=== PATIENT | male | born 1935 | race Caucasian/White ===

== ENCOUNTER 2020-01-13 13:29 | Outpatient (CLI) | payer MEDICARE, BC, SELFPAY ==
[2020-01-13 13:50] LABS: Hematocrit 43.4 % (42.0-52.0); Hemoglobin 14.2 g/dL (14.0-18.0); Mean Corpuscular HGB Conc 32.7 g/dl (32-36); Mean Corpuscular Hemoglobin 28.9 pg (26-34); Mean Corpuscular Volume 88.4 fl (80-100); Mean Platelet Volume 9.7 fl (7.4-10.4); Platelet Count Result 218 k/mm3 (150-375); Red Blood Count 4.91 M/mm3 (4.6-6.20); Red Cell Distribution Width 13.4 % (11.5-14.5); White Blood Count 5.3 K/mm3 (4.5-10.0)
[2020-01-13 15:06] LABS: Anion Gap 9 mmol/L (8-16); Blood Urea Nitrogen 19 mg/dL (9-20); Calcium 9.5 mg/dL (8.4-10.2); Carbon Dioxide 28 mmol/L (22-30); Chloride 103 mmol/L (98-107); Estimated Glomerular Filt Rate > 60; Glucose 128 mg/dL (75-110); Potassium 4.5 mmol/L (3.4-5.0); Sodium 140 mmol/L (137-145)
[2020-01-13 15:13] LABS: Immunoglobulin A 152 mg/dL (70-400); Immunoglobulin G 936 mg/dL (700-1600); Immunoglobulin M 255 mg/dL (40-230)
[2020-01-18 21:31] LABS: Albumin 4.2 g/dL (3.8-4.8); Alpha 1 Globulin 0.3 g/dL (0.2-0.3); Alpha 2 Globulin 0.9 g/dL (0.5-0.9); Beta 1 Globulin 0.4 g/dL (0.4-0.6)
[2020-01-21 22:02] LABS: Kappa\\Lambda Light Chains 1.17 (0.26-1.65); Lambda Light Chain 22.8 mg/L (5.7-26.3)
== END 2020-01-13 13:30 | disposition home or self-care (01) ==
PROVIDERS: PCP Nurse Practitioner; Visit Provider Internal Medicine Hematology & Oncology
DX: D47.2 Monoclonal gammopathy (principal)
CPT/HCPCS: 36415; 80048; 82784; 83883; 84155; 84165; 85027; 86334

== ENCOUNTER 2020-04-04 22:33 | Observation (INO) | payer MEDICARE, BC, SELFPAY ==
--- NOTE | ~2020-04-04 | MR_ITS ---
EXAMINATION: MR brain/brain stem wo/w con EXAM DATE: 04/05/2020 11:55 INDICATION: Transient expressive aphasia. TECHNIQUE: Magnetic resonance imaging (MRI) of the brain/brain stem obtained without contrast. Sagit vicente T1, axial diffusion, gradient echo (T2*), T1, T2, FLAIR sequences obtained. Patient was then inj ected with 19 cc intravenous Multihance contrast. Axial and coronal postcontrast T1 weighted sequence s obtained. There is no prior study for comparison. FINDINGS: There is punctate focus of increased diffusion weighted signal in the left parietal lobe at the vertex, possible punctate acute infarction. Multiple old small periventricular infarctions. Old right basal ganglia lacunar infarctions. There is no acute hemorrhage seen on the T2*, a hemosiderin sensitive sequence. No intraparenchymal brain mass lesion. There is moderate periventricular and sub cortical T2/FLAIR signal hyperintensity, nonspecific but probably related to small vessel ischemic di sease (microangiopathy). There is moderate prominence of the sulci and ventricles related to cerebr al atrophy. There are no extra-axial collections. Flow voids are seen in the cerebral arteries on the T2-weighted sequences consistent with their expected patency. The orbits are unremarkable. Soft tissue is unremarkable. IMPRESSION: 1. Punctate focus of signal abnormality left vertex, possible acute infarction 2. Multiple old small infarctions. 3. Chronic age related findings. Reviewed, dictated and finalized at location A. R SUPPLY ENGINEER
--- NOTE | ~2020-04-04 | US_ITS ---
EXAMINATION: US carotid duplex BI EXAM DATE: 04/05/2020 12:25 INDICATION: transient aphasia . TECHNIQUE: Grayscale, color and pulsed Doppler images of the cervical carotid arteries were obtained . The degree of vessel stenosis is placed in one of the following categories: normal, <50% stenosis, 50-69% stenosis, >=70% stenosis but less than near-occlusion, near-occlusion, or occlusion. Note that percent stenosis relative to normal distal artery lumen diameter is indirectly measured from velocit y measurements as described by Miguel, et al. Radiology 2003; 229:340-346. There is no prior study fo r comparison. FINDINGS: RIGHT SIDE: Right common carotid artery peak systolic velocity (PSV in cm/s): 85 Right bulb/internal carotid artery peak systolic velocity (PSV in cm/s): 74 Right internal carotid artery end diastolic velocity (EDV in cm/s): 18 Right ICA/CCA peak systolic ratio: 0.9 Right external carotid artery peak systolic velocity (PSV in cm/s): 79 Right vertebral artery antegrade flow: yes There is mild carotid bulb plaque. Velocity and Doppler waveforms in the common and internal carotid arteries is normal. LEFT SIDE: Left common carotid artery peak systolic velocity (PSV in cm/s): 84 Left bulb/internal carotid artery peak systolic velocity (PSV in cm/s): 106 Left internal carotid artery end diastolic velocity (EDV in cm/s): 33 Left ICA/CCA peak systolic ratio: 1.3 Left external carotid artery peak systolic velocity (PSV in cm/s): 85 Left vertebral artery antegrade flow: yes There is mild carotid bulb plaque. Velocity and Doppler waveforms in the common and internal carotid arteries is normal. IMPRESSION: 1. Less than 50 percent stenosis in the right internal carotid artery. 2. Less than 50 percent stenosis in the left internal carotid artery. > Reviewed, dictated and finalized at location A. AN TRADER
[2020-04-04 20:50] VITALS: BP 152/85; PULSE 76; RESP 20; TEMP 36.6; O2SAT 100; BMI 27.5
--- NOTE | 2020-04-04 21:07 | ADMGEN ---
This patient, Spencer Burciaga, was admitted to 2 Medical Room 259-01. Patient/family oriented to hospital policies and general routines including ID bracelet, bed and alarms, visiting hours, pain management, procedures, bathroom and other care routines, personal items, smoking policy, room service/diet, and visiting hours. Information on how to activate the Rapid Response Team has been discussed. Patient/Family are encouraged to report perceived risks to care and to ask questions if they do not understand what they are told or what they should do.
[2020-04-04 22:07] LABS: Glucose Point of Care 148 (65-105)
--- NOTE | 2020-04-04 23:00 | PM.IMHP ---
H&P: HPI History of Present Illness Date/Time: 04/04/20 23:00 Chief complaint: Transient expressive aphasia. Narrative: Spencer Burciaga is an 84-year-old male with history of multiple TIAs, stroke, type 2 diabetes mellitus, hypertension, and hypothyroidism who presented to the emergency department at [facility] in [place] earlier today for evaluation of transient expressive aphasia. Not long prior to arrival to the emergency department he and his were having a conversation when he suddenly was unable to speak which lasted for less than 30 minutes. After he returned to baseline his recollection for what had happened was poor. Tele neurologist at the outside hospital felt that he need to be admitted for neurology consultation, brain MRI, and EEG. There were no beds available at that hospital and he is thus being directly admitted to [facility]. At the time my evaluation he is at his baseline, and knows that he has mild dysarthria which he states is residual from a prior stroke. He has a loop recorder in place and is on apixaban however he has no documented history of atrial fibrillation. At the time of my evaluation he is resting comfortably and has no complaints. He denies headache, auditory and visual changes, dysphagia, focal weakness, and paresthesias. He also denies palpitations and racing heart. He has no history of seizures and there was no reported seizure activity. Review of Systems Review of Systems: Narrative: Twelve systems were reviewed with pertinent positives and negatives as per HPI. No fever, chills, or sweats. No recent cold or flu symptoms. He denies exertional chest pain shortness of breath. No syncope or near syncope. Weight has remained stable. No nausea, vomiting, diarrhea, or dysuria. Except as documented, all other systems were reviewed and are negative. [facility] Past Medical History Medical History (Updated 04/05/20 @ 01:31 by Vilma Leonardo PA-C) Cerebrovascular accident With mild residual dysarthria. Colon polyps Current use of alf anticoagulation Hyperlipidemia Hypertension Hypothyroidism Kidney donor Kidney stones Monoclonal gammopathy Osteoarthritis Skin cancer Type 2 diabetes mellitus Surgical History Surgical History (Updated 04/05/20 @ 01:28 by Vilma Leonardo PA-C) History of arthroscopy of shoulder History of cataract extraction History of cystoscopy With stone extraction and stent placement. History of left nephrectomy Patient donated left kidney. History of lithotripsy Status post placement of implantable loop recorder Family History Family History Mother Breast cancer Diabetes mellitus Mother History of open heart surgery Mother No problems noted. Father Lung cancer Sibling Diabetes mellitus Social History Social History (Updated 04/05/20 @ 01:29 by Vilma Leonardo PA-C) Social History: Surrogate decision maker: Suma Burciaga, . Code status: Full code. Smoking packs per day: 2 Smoking cigarettes per day: 40.0 Years smoked: 14 Smoking pack-years: 28.00 Smoking status: Former smoker Tobacco type: cigarettes, cigars and smokeless tobacco Second hand tobacco smoke exposure: Yes Smoking end date: 03/18/1960 Alcohol intake: unknown Substance use: never Additional living arrangements comments: Patient lives in [place] with his . He is originally from [place] and lived in [place] for many years. Additional occupation/education comments: Retired from the [employer] [place]. Spiritual care concerns: No Meds Home Medications and Allergies Home Medications Medication Instructions Recorded Confirmed Type apixaban [Eliquis] 5 mg PO BID 04/04/20 04/04/20 History aspirin [Chris Chewable Aspirin] 81 mg PO DAILY 04/04/20 04/04/20 History lisinopril [Zestril] 5 mg PO ONCE 04/04/20 04/04/20 History metformin [Glucophage
[2020-04-05] VITALS: PULSE 71
[2020-04-05 04:00] VITALS: BP 107/53; PULSE 72; PULSE 77; RESP 18; TEMP 36.8; O2SAT 95
[2020-04-05 05:43] LABS: Alanine Aminotransferase 26 U/L (4-50); Albumin Level 3.9 g/dL (3.5-5.1); Alkaline Phosphatase 42 U/L (38-126); Anion Gap 9 mmol/L (8-16); Aspartate Amino Transferase 32 U/L (17-59); Bilirubin,Total 0.5 mg/dL (0.2-1.3); Blood Urea Nitrogen 15 mg/dL (9-20); Calcium 8.7 mg/dL (8.4-10.2); Carbon Dioxide 25 mmol/L (22-30); Chloride 107 mmol/L (98-107); Estimated CRCL calculation 59 ml/min; Estimated Glomerular Filt Rate > 60; Glucose 126 mg/dL (75-110); Potassium 3.8 mmol/L (3.4-5.0); Sodium 141 mmol/L (137-145)
[2020-04-05 05:49] LABS: Hemoglobin A1C 6.6 % (<5.7)
[2020-04-05 06:04] LABS: Cholesterol 103 mg/dL (0-200); HDL Direct 29 mg/dL; Triglycerides 195 mg/dL (<150)
[2020-04-05 06:15] LABS: LDL Cholesterol Direct 43 mg/dL
[2020-04-05 07:30] LABS: Glucose Point of Care 140 (65-105)
[2020-04-05 08:00] VITALS: PULSE 86
--- NOTE | 2020-04-05 08:44 | WPDNEURCNPN ---
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 Type 2 diabetes mellitus 2. Hypertension 3. Hypothyroidism 4. History of multiple TIAs in the past reportedly him and his for were having a conversation when he suddenly became unable to speak the whole episode lasted for 30 minutes. After he returned to the baseline he had difficulties in recalling what has happened. He was also noted to have mild residual dysarthria from the previous stroke and at present he is on apixaban with loop recorder in place but no documentation of atrial fibrillation as yet. evaluation up until now includes only the routine lab studies which include the CBC, BM and hemoglobin A1c of 6.6 with triglycerides of 195 patient does have ongoing history of monoclonal gammopathy with IgM of 255 and free kappa and lambda ratio of 1.17 Review of Systems Review of Systems: All systems reviewed & are unremarkable except as noted in HPI and below PMFSH Past Medical History Medical History Cerebrovascular accident With mild residual dysarthria. Colon polyps Current use of jail anticoagulation Hyperlipidemia Hypertension Hypothyroidism Kidney donor Kidney stones Monoclonal gammopathy Osteoarthritis Skin cancer Type 2 diabetes mellitus Surgical History Surgical History History of arthroscopy of shoulder History of cataract extraction History of cystoscopy With stone extraction and stent placement. History of left nephrectomy Patient donated left kidney. History of lithotripsy Status post placement of implantable loop recorder Family History Family History Mother Breast cancer Diabetes mellitus Mother History of open heart surgery Mother No problems noted. Father Lung cancer Sibling Diabetes mellitus Social History Social History Social History: Surrogate decision maker: Suma Burciaga, . Code status: Full code. Smoking packs per day: 2 Smoking cigarettes per day: 40.0 Years smoked: 14 Smoking pack-years: 28.00 Smoking status: Former smoker Tobacco type: cigarettes, cigars and smokeless tobacco Second hand tobacco smoke exposure: Yes Smoking end date: 03/18/1960 Alcohol intake: unknown Substance use: never Additional living arrangements comments: Patient lives in [place] with his . He is originally from [place] and lived in [place] for many years. Additional occupation/education comments: Retired from the [employer] [place]. Spiritual care concerns: No Meds Home Medications and Allergies Home Medications Medication Instructions Recorded Confirmed Type apixaban [Eliquis] 5 mg PO BID 04/04/20 04/04/20 History aspirin [Chris Chewable Aspirin] 81 mg PO DAILY 04/04/20 04/04/20 History lisinopril [Zestril] 5 mg PO ONCE 04/04/20 04/04/20 History metformin [Glucophage
[2020-04-05] MEDS: ROSUVASTATIN 10 MG TABLET 40 MG PO (09:05)
[2020-04-05 09:06] VITALS: PULSE 86
[2020-04-05] MEDS: APIXABAN 5 MG TABLET PO (09:06)
[2020-04-05] MEDS: THYROID 60 MG TABLET PO (09:06)
[2020-04-05] MEDS: lisinopriL 5 MG TABLET PO (09:06)
[2020-04-05] MEDS: metFORMIN HCL 500 MG TABLET 1000 MG PO (09:06)
[2020-04-05] MEDS: ASPIRIN 81 MG CHEWABLE TABLET PO (09:06)
[2020-04-05] MEDS: METOPROLOL SUCCINATE EXT REL 25 MG TABCR PO (09:06)
[2020-04-05] MEDS: TIMOLOL MALEATE 0.5% OP SOLN 5 ML BOTTLE 1 DROP EACH EYE (09:07)
--- NOTE | 2020-04-05 09:29 | WPDNEUROLOGY ---
Neurology EEG Report General Information Date of Study: 04/05/20 TEST EEG DIAGNOSIS Transient dysarthria CONDITION OF RECORDING awake drowsy and sleep EEG NUMBER [id number] CLINICAL HISTORY Patient reported he has had 4 small strokes in the last couple of years and each 1 leaves him with a little more dysarthria EEG DESCRIPTION Basic resting occipital frequency consists of medium voltage 8 to 9 hertz per 2nd alpha admixed with low-voltage 15 to 18 hertz per 2nd beta. During drowsiness low-voltage beta activity is seen diffusely. Bilateral symmetrical sleep activity seen during sleep hyperventilation not done photic stimulation not done. non paroxysmal nonfocal nonlateralizing IMPRESSION Normal record
[2020-04-05 12:36] LABS: Glucose Point of Care 137 (65-105)
[2020-04-05 14:00] VITALS: BP 119/73; PULSE 77; RESP 18; TEMP 36.2; O2SAT 97
--- NOTE | 2020-04-05 14:01 | PM.DS ---
DS: Admitting Diagnosis Admitting Diagnosis Admitting Diagnosis: Transient dysarthria DS: Discharge Diagnosis Discharge Diagnosis (1) Transient neurological symptoms: Code(s): R29.818 - Other symptoms and signs involving the nervous system Status: Acute Assessment and Plan: TIA vs CVA. Brain MRI has questionable punctate focus on left vertex possibly an acute infarct. Carotid duplex unremarkable. Patient's dysarthria symptoms are improved but still slightly present. Discussed with Dr. Don (Neurology) who is okay with discharge with follow up with his established Neurologist at [place]. He recommended continuing anticoagulation, statin, and ASA. 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: Code(s): Z79.01 - manager intermediate (current) use of anticoagulants Status: Acute Assessment and Plan: On Eliquis; will continue this at discharge (3) Hypertension: Code(s): I10 - Essential (primary) hypertension Status: Acute Assessment and Plan: BP 107/53 this morning Continue home antihypertensives at discharge (4) Hyperlipidemia: Code(s): E78.5 - Hyperlipidemia, unspecified Status: Acute Assessment and Plan: Triglycerides 195, cholesterol 103, LDL 43, HDL 29 Continue statin (5) Type 2 diabetes mellitus: Code(s): E11.9 - Type 2 diabetes mellitus without complications Status: Acute Assessment and Plan: BGL 100s. A1c 6.6 Accuchecks ACHS, hypoglycemia protocol, correctional insulin, diabetic diet (6) Hypothyroidism: Code(s): E03.9 - Hypothyroidism, unspecified Status: Acute Assessment and Plan: Continue home regimen DS: Summary Hospital Course Reason for hospitalization: Dysarthria; TIA vs CVA Hospital Course: Patient is a 84 yo M with history of multiple TIAs, stroke, type 2 diabetes mellitus, hypertension, and hypothyroidism who presented to the emergency department at [facility] in [place] on 04/04 for evaluation of transient expressive aphasia. Not long prior to arrival to the emergency department he and his were having a conversation when he suddenly was unable to speak which lasted for less than 30 minutes. After he returned to baseline his recollection for what had happened was poor. Tele neurologist at the outside hospital felt that he need to be admitted for neurology consultation, brain MRI, and EEG. Patient was then transferred to [facility] for above work up. Patient admitted under this setting. Please see H&P for further details. Dr. Don was consulted and EEG was reported to be normal. Carotid Doppler was unremarkable. Brain MRI showed old small infarctions, chronic age related findings and a punctate focus of signal abnormality left vertex, possibly suggesting an acute infarct. His symptoms had improved significantly, but still had slight dysarthria on discharge. Per Neurology recommendations, he was to continue his adequate stroke prophylaxis with aspirin, statin, and Eliquis. Vital signs were stable and patient afebrile with unremarkable labs during his stay. He was to follow up with his established Neurologist and PCP after discharge. No driving was recommended. Patient and family were agreeable and comfortable with plan for discharge. Patient hemodynamically stable and in improved condition for discharge on 04/05. Status at Discharge Overall status at discharge: patient is progressing back to baseline Time Spent with Patient Time attestation: Total time spent providing and/or coordinating discharge services: Time spent: Greater than 30 minutes
== END 2020-04-05 15:31 | disposition home or self-care (01) ==
PROVIDERS: Physician Assistant; Admitting Provider Internal Medicine; PCP Nurse Practitioner; Visit Provider Family Medicine
DX: R47.1 Dysarthria and anarthria (principal); R29.818 Other symptoms and signs involving the nervous system; I69.322 Dysarthria following cerebral infarction; E11.9 Type 2 diabetes mellitus without complications; E78.5 Hyperlipidemia, unspecified; E03.9 Hypothyroidism, unspecified; I10 Essential (primary) hypertension; Z79.01 Long term (current) use of anticoagulants; Z85.828 Personal history of other malignant neoplasm of skin; Z90.5 Acquired absence of kidney; Z87.891 Personal history of nicotine dependence; Z79.84 Long term (current) use of oral hypoglycemic drugs; Z95.818 Presence of other cardiac implants and grafts
CPT/HCPCS: 36415; 70553; 80053; 80061; 83036; 93880; 95816; A9270; A9577; G0378; G0379

== ENCOUNTER 2020-04-16 11:34 | Outpatient (CLI) | payer MEDICARE, BC, SELFPAY ==
[2020-04-18 13:19] LABS: Homocysteine 10.8 umol/L (<11.4)
== END 2020-04-16 11:35 | disposition home or self-care (01) ==
PROVIDERS: PCP Nurse Practitioner; Visit Provider Internal Medicine Hematology & Oncology
DX: I63.9 Cerebral infarction, unspecified (principal)
CPT/HCPCS: 36415; 83090; 85307

== ENCOUNTER 2023-10-31 09:07 | Emergency (ER) | payer MEDICARE, BC, SELFPAY ==
--- NOTE | ~2023-10-31 | XR_ITS ---
XR chest 2V DATE: 10/31/2023 10:08 INDICATION: Weakness TECHNIQUE: AP and lateral views. The lateral view is very limited due to superimposed upper extremiti es. COMPARISON: 11/17/2011 2 view chest FINDINGS: Heart size is normal. There is aortic calcification and unfolding. Loop recorder overlies the left chest. No pulmonary infiltrate or consolidation, pleural effusion or pulmonary vascular congestion or pneumo thorax is detected. Surgical clips overlie the right upper quadrant, consistent with cholecystectomy. Suture anchors at left humerus overlying greater tuberosity. Degenerative spurring of the thoracic sp ine. Osteopenia. IMPRESSION: No active cardiopulmonary disease Aortic atherosclerosis Reviewed, dictated and finalized at location A.
--- NOTE | ~2023-10-31 | CT_ITS ---
EXAMINATION: CT abd pelvis lumbar w con DATE: 10/31/2023 11:42 INDICATION: Chronic back pain. Decreased appetite and fluid intake. TECHNIQUE: Computed tomography (CT) of the abdomen and pelvis and lumbar spine was performed with 100 CC Omnipaque 350 intravenous contrast. Automated exposure control and iterative reconstruction techn ique were employed. Exam dose: 765.28 mGy-cm total exam DLP. COMPARISON: 08/13/2016 CT abdomen pelvis FINDINGS: There is a prominent discoid band of infiltrate, atelectasis and/or scarring in the posteri or right lower lobe with multiple associated crowded bronchi with extensive mucous plugging. Mild atelectasis or fibrotic change at the base of the left lung. Prominent coronary artery calcifications. No pericardial effusion. No pleural effusion. Status post cholecystectomy. This likely a cast for minimal prominence of the bile ducts. Normal miguel villa of the pancreatic duct. No hepatic, splenic, pancreatic or adrenal space-occupying mass lesion. Apparent small calcified left renal remnant in the left renal fossa, unchanged since 08/13/2016. Multiple right renal cysts again noted. No right urinary tract calculus or hydroureteronephrosis. There is prostate enlargement, impressing the base of the urinary bladder. Posterolateral right 12 mm urinary bladder diverticulum. There is atherosclerotic calcification but normal caliber of the abdominal aorta. No intraperitoneal or retroperitoneal or pelvic mass lesion or adenopathy or ascites is noted. Normal appendix. There is a prominent amount of feces in the colon. No bowel obstruction or intraperi toneal free air is detected. Small fat-containing umbilical hernia and small fat-containing inguinal hernias. No suspicious osteolytic or osteoblastic lesions. Diffuse idiopathic skeletal hyperostosis of the thoracic spine. Multilevel degenerative disease of the lumbar spine, moderately severe at L4-5 and L5-S1. Degenerativ e change at the lumbar and lumbosacral apophyseal joints. No spondylolisthesis. IMPRESSION: Diffuse idiopathic skeletal hyperostosis of the thoracic spine Lumbar spondylosis, including moderately severe degenerative disease at L4-5 and L5-S1 Prominent discoid atelectasis and/or scarring and crowded bronchi with mucus plugging, right lower lo be Coronary artery atherosclerosis Cholecystectomy Multiple right renal cysts Very hypertrophic calcified left renal remnant Normal appendix Reviewed, dictated and finalized at [facility]. Reviewed, dictated and finalized at [facility]. IMPRESSION: Diffuse idiopathic skeletal hyperostosis of the thoracic spine Lumbar spondylosis, including moderately severe degenerative disease at L4-5 an d L5-S1 Prominent discoid atelectasis and/or scarring and crowded bronchi with mucus pl ugging, right lower lobe Coronary artery atherosclerosis Cholecystectomy Multiple right renal cysts Very hypertrophic calcified left renal remnant Normal appendix
[2023-10-31 09:12] VITALS: BP 127/96; PULSE 85; RESP 16; TEMP 36.3; O2SAT 94
--- NOTE | 2023-10-31 09:14 | ECG_ITS ---
Test Date: 2023-10-31 09:16:13 Measurements Intervals [place] Rate: 83 P: 43 UT: 136 QRS: -78 QRSD: 106 T: 52 QT: 383 QTc: 452 Interpretive Statements SINUS RHYTHM PATTERN CONSISTENT WITH PULMONARY DISEASE LEFT ANTERIOR FASCICULAR BLOCK [QRS AXIS <= -45, QR IN I, RS IN II] No previous ECG available for comparison Electronically Signed On 11-01-2023 12:54:16 CDT by Jerry Franklin M.D.
--- NOTE | 2023-10-31 09:49 | ED.GENADULT ---
HPI - General Adult General Chief complaint: Weakness Stated complaint: Weakness Time Seen by Provider: 10/31/23 09:23 History of Present Illness HPI narrative: 87-year-old male that is a and O x1 at baseline presents to the emergency department for evaluation for decreased p.o. intake. Patient is present with his daughters here today. Patient's POA is clearly his and stepson. They had made the plan to place the patient on hospice. Patient states he does not want to be on hospice. Daughters feel the patient needs fluids for rehydration. Patient has had decreased p.o. intake due to chronic back pain. Related Data Home Medications Medication Instructions Recorded Confirmed timolol maleate 0.5 % eye drops 1 drp ophthalmic (eye) DAILY 04/04/20 10/01/23 (Timoptic) fluticasone propionate 50 2 spray intranasal DAILY 09/01/23 10/01/23 mcg/actuation nasal spray,suspension (Allergy Relief (fluticasone)) latanoprost 0.005 % eye drops 1 drp EACH EYE QPM 09/01/23 10/01/23 semaglutide 0.25 mg or 0.5 mg (2 0.5 mg subcut WEEKLY 09/01/23 10/01/23 mg/3 mL) subcutaneous pen injector (Ozempic) Allergies Allergy/AdvReac Type Severity Reaction Status Date / Time morphine Allergy Unknown Verified 05/02/20 14:15 aspirin AdvReac Mild Headache Verified 05/02/20 14:15 dipyridamole AdvReac Mild Headache Verified 05/02/20 14:15 Review of Systems Review of Systems: All systems reviewed & are unremarkable except as noted in HPI and below [facility] Past Medical History Medical History (Updated 10/31/23 @ 16:47 by Reed Gordon MD) Atrial fibrillation Cerebrovascular accident With mild residual dysarthria. Colon polyps Current use of group home anticoagulation Hemiparesis Hyperlipidemia Hypertension Hypothyroidism Kidney donor Kidney stones Monoclonal gammopathy Osteoarthritis Skin cancer Type 2 diabetes mellitus Surgical History Surgical History History of arthroscopy of shoulder History of cataract extraction History of cystoscopy With stone extraction and stent placement. History of left nephrectomy Patient donated left kidney. History of lithotripsy Status post placement of implantable loop recorder Family History Family History Sibling Malignant neoplasm of prostate Mother Family history of diabetes mellitus in first degree relative Family history of malignant neoplasm of breast in first degree relative Mother Breast cancer Diabetes mellitus Mother History of open heart surgery Mother No problems noted. Father Lung cancer Sibling Diabetes mellitus Social History Social History Social History: Surrogate decision maker: Suma Burciaga, . Code status: Full code. Smoking packs per day: 2 Smoking cigarettes per day: 40.0 Years smoked: 14 Smoking pack-years: 28.00 Smoking status: Former smoker Tobacco type: cigarettes Second hand tobacco smoke exposure: No Smoking end date: 03/18/1960 Alcohol intake: former Substance use: never Substance use type: does not use Additional living arrangements comments: Patient lives in [place] with his . He is originally from [place] and lived in [place] for many years. Additional occupation/education comments: Retired from the [employer] [place]. Spiritual care concerns: No Exam Narrative: APPEARANCE: Alert-appearing. HEAD: normocephalic, atraumatic. EYES: PERRLA/EOMI, conjunctivae clear. NOSE: Normal no drainage EARS:TMS clear with good light reflex. THROAT: Pharynx clear, no exudate. NECK: Supple. No adenopathy, no masses. RESPIRATORY: Airway patent, respirations nonlabored. Clear to auscultation bilaterally, no rales, rhonchi, wheezing. CARDIOVASCULAR: Regular rate and rhythm without murmurs rubs or gallops. ABDOMIN
[2023-10-31 09:51] LABS: Basophils Percent Auto 0.5 % (0.2-1.2); Eosinophils Percent Auto 0.4 % (0-4.4); Hematocrit 47.4 % (42.0-52.0); Hemoglobin 15.4 g/dL (14.0-18.0); Immature Granulocyte Absolute 0.02 K/mm3 (0.00-0.031); Immature Granulocyte Percent A 0.4 % (0-0.5); Lymphocytes Absolute Auto 1.56 K/mm3 (0.9-3.2); Lymphocytes Percent Auto 27.8 % (18.3-44.2); Mean Corpuscular HGB Conc 32.5 g/dl (32-36); Mean Corpuscular Hemoglobin 30.6 pg (26-34); Mean Platelet Volume 9.8 fl (7.4-10.4); Monocytes Absolute Auto 0.5 K/mm3 (0.1-0.6); Monocytes Percent Auto 8.6 % (2.6-8.5); Neutrophils Absolute Auto 3.5 K/mm3 (1.3-6.7); Neutrophils Percent Auto 62.3 % (45.5-73.1); Platelet Count Result 274 k/mm3 (150-375); Red Blood Count 5.04 M/mm3 (4.6-6.20); Red Cell Distribution Width 17.3 % (11.5-14.5); White Blood Count 5.6 K/mm3 (4.5-10.0)
[2023-10-31 09:54] LABS: Appearance Urine Clear (Clear); Bacteria Urine None Seen /hpf; Bilirubin Urine Negative (Negative); Blood Urine 3+ (Negative); Color Urine Yellow (Yellow); Glucose Urine UA Negative (Negative); Ketones Urine 2+ mg/dL (Negative); Leukocyte Esterase Ur Negative LEU/UL (Negative); Nitrate Urine Negative (Negative); Non Pathogenic Casts 0-2; Protein Urine Trace mg/dL (Negative); RBC Urine >100 /hpf (0-2); Specific Grav Ur 1.019 (1.001-1.035); Squamous Epithelial Cell Urine None Seen /hpf (Few); WBC Urine 0-5 /hpf (0-3); pH Urine 6.5 (5.0-9.0)
[2023-10-31 10:00] LABS: Add Urine Microscopic? YES
[2023-10-31 10:01] LABS: Alanine Aminotransferase 51 U/L (6-50); Albumin Level 3.8 g/dL (3.5-5.1); Alkaline Phosphatase 125 U/L (38-126); Anion Gap 9 mmol/L (4-12); Aspartate Amino Transferase 53 U/L (17-59); Bilirubin,Total 1.2 mg/dL (0.2-1.3); Blood Urea Nitrogen 16 mg/dL (9-20); Calcium 9.1 mg/dL (8.4-10.2); Carbon Dioxide 24 mmol/L (22-30); Chloride 110 mmol/L (98-107); Estimated CRCL calculation 49 ml/min; Estimated Glomerular Filt Rate > 60; Glucose 139 mg/dL (65-110); Potassium 3.7 mmol/L (3.4-5.0); Sodium 143 mmol/L (137-145)
[2023-10-31] MEDS: SODIUM CHLORIDE 0.9% IV 1,000 ML 999 ML IV CONT (10:06)
[2023-10-31 10:16] VITALS: PULSE 79
[2023-10-31 10:27] LABS: Influenza A QL RT-PCR Negative (Negative); Influenza B QL RT-PCR Negative (Negative); RSV RNA, RT-PCR Negative (Negative); SARS-CoV-2 RNA PCR Negative (Negative)
[2023-10-31 11:01] VITALS: BP 137/97; PULSE 83; RESP 29; O2SAT 98
[2023-10-31] MEDS: methylPREDNISolone SOD SUCC 125 MG VIAL IV PUSH (11:09)
[2023-10-31] MEDS: fentaNYL CITRATE INJ (*CRX) 100 MCG/2 ML VIAL 50 MCG IV PUSH (11:09)
[2023-10-31 15:58] VITALS: BP 149/98; PULSE 83; RESP 23; O2SAT 94
--- NOTE | 2023-10-31 16:16 | PCCCNOTE ---
Referral received requesting a meeting with pt and family regarding goals of care. Per pt's advanced directive pt's , Suma, is HPOA and son, Hiram Huff is secondary HPOA. Call placed to pt's , and son, Hiram, was present during call. Hiram states pt's spouse has expressive phasia and at times cannot answer questions but is able to write answers to questions frequently. Hiram reports pt is from [facility] and has a Medicaid application pending. He states he met with LAKIA Leal from [facility], at the suggestions of Dr[facility] and Dr. Leal, his primary care doctor at [facility], as pt is no longer eating and drinking sufficiently and is losing weight. He states no decision was finalized regarding admission to [facility] services and they are palnning to readdress on Thursday11/02/23. Pt's two daughters, Treva and Melida, were in the pt ED room with pt, and state they are at odds with Hiram regarding pt going on hospice care and wish to take the pt to [place] with them where they reside. Informed them that per Dr. Gordon, ED physician, pt would be returning to [facility] today and suggested they have a family meeting to communicate goals of care.
== END 2023-10-31 17:45 ==
PROVIDERS: Emergency Provider Emergency Medicine; PCP Nurse Practitioner Family
DX: R63.8 Other symptoms and signs concerning food and fluid intake (principal); Z20.822 Contact with and (suspected) exposure to COVID-19; I48.91 Unspecified atrial fibrillation; I10 Essential (primary) hypertension; E78.5 Hyperlipidemia, unspecified; E11.9 Type 2 diabetes mellitus without complications; E03.9 Hypothyroidism, unspecified; M19.90 Unspecified osteoarthritis, unspecified site; Z87.442 Personal history of urinary calculi; Z86.010 Personal history of colon polyps; Z85.828 Personal history of other malignant neoplasm of skin; Z87.891 Personal history of nicotine dependence; Z98.49 Cataract extraction status, unspecified eye; Z90.5 Acquired absence of kidney; Z79.85 Long-term (current) use of injectable non-insulin antidiabetic drugs; Z79.01 Long term (current) use of anticoagulants; Z79.899 Other long term (current) drug therapy; M48.14 Ankylosing hyperostosis [Forestier], thoracic region; M47.816 Spondylosis without myelopathy or radiculopathy, lumbar region; M51.37 Other intervertebral disc degeneration, lumbosacral region; I25.10 Atherosclerotic heart disease of native coronary artery without angina pectoris; Z90.49 Acquired absence of other specified parts of digestive tract; N28.1 Cyst of kidney, acquired; I44.4 Left anterior fascicular block
CPT/HCPCS: 36415; 71046; 72132; 74177; 80053; 81001; 85025; 87637; 93005; 96361; 96374; 96375; 99284; J2919; J3010; J7030; Q9967